=== PATIENT | male | born 1965 | race Caucasian/White ===

== ENCOUNTER 2018-09-17 06:13 | Day surgery (SDC) | payer OTHER ==
[2018-09-13 13:14] VITALS: BMI 27.6
[2018-09-17] MEDS ORDERED: MIDAZOLAM HCL 2 MG/2 ML SINGLE DOSE VIAL ONE (06:43)
[2018-09-17] MEDS ORDERED: BUPIVACAINE HCL/PF (5 MG/ML) 30 ML VIAL IJ ONE (06:43)
[2018-09-17] MEDS ORDERED: DEXAMETHASONE SOD PHOSPHATE/PF 10 MG/ML SDV ONE (06:43)
[2018-09-17] MEDS ORDERED: PROPOFOL 20 ML ONE ×3 (07:06→08:02)
[2018-09-17] MEDS ORDERED: ceFAZolin SODIUM 1 GM VIAL ONE (07:08)
[2018-09-17] MEDS ORDERED: LIDOCAINE HCL 2% JELLY (5 ML/TUBE) ONE (07:08)
[2018-09-17] MEDS ORDERED: KETOROLAC TROMETHAMINE 30 MG/1 ML VIAL ONE (07:08)
[2018-09-17] MEDS ORDERED: DEXAMETHASONE SOD PHOSPHATE 4 MG/1 ML VIAL ONE (07:08)
[2018-09-17] MEDS ORDERED: LIDOCAINE HCL/PF 2% SDV 5ML VIAL ONE (07:08)
[2018-09-17] MEDS ORDERED: SUCCINYLCHOLINE CHLORIDE 200 MG/10 ML VIAL ONE (07:15)
[2018-09-17] MEDS ORDERED: EPINEPHrine 1:1,000 1 MG/1 ML - 30ML VIAL (INJECTION) ONE (07:17)
[2018-09-17] MEDS ORDERED: BUPIVACAINE HCL/PF 2.5 MG/ML - 30 ML VIAL IJ ONE (07:17)
[2018-09-17] MEDS ORDERED: oxyCODONE HCL 5 MG TABLET PO PRN (08:49)
[2018-09-17] MEDS ORDERED: ONDANSETRON 4 MG/2 ML VIAL IVPUSH PRN (08:49)
[2018-09-17] MEDS ORDERED: LACTATED RINGERS SOLUTION 1,000 ML IV SCH (09:00)
[2018-09-17] MEDS ORDERED: ONDANSETRON 4 MG/2 ML VIAL ONE (09:44)
[2018-09-17] MEDS ORDERED: ONDANSETRON 4 MG/2 ML VIAL IVPUSH ONE (09:45)
[2018-09-17 11:35] VITALS: TEMP 97.8
[2018-09-17 11:48] VITALS: BP 131/85; PULSE 76
--- NOTE | 2018-09-17 12:52 | OP ---
DATE OF OPERATION: 09/17/2018 SURGEON: Naomi Apodaca MD ASSISSTANT: PARMINDER Bazan PREOPERATIVE DIAGNOSES: 1. Right shoulder rotator cuff tear. 2. Right shoulder adhesive capsulitis. 3. Right shoulder impingement syndrome. 4. Right shoulder acromioclavicular joint tear. 5. Right shoulder superior labral tear, anterior-posterior synovitis. POSTOPERATIVE DIAGNOSES: 1. Right shoulder rotator cuff tear. 2. Right shoulder adhesive capsulitis. 3. Right shoulder impingement syndrome. 4. Right shoulder acromioclavicular joint tear. 5. Right shoulder superior labral tear, anterior-posterior synovitis. PROCEDURE: 1. Right shoulder arthroscopy with arthroscopic rotator cuff repair (CPT code 93251). 2. Right shoulder arthroscopy with lysis and resection of adhesions (CPT code 29657). 3. Right shoulder arthroscopy with subacromial decompression (CPT code 23255). 4. Right shoulder arthroscopy with resection of distal clavicle, acromioclavicular joint (CPT code 31407). 5. Right shoulder arthroscopy with debridement (CPT code 32026). FINDINGS: 1. Glenohumeral synovitis with adhesions and scar tissue. 2. Superior labral tear to anterior posterior x1. 3. Central grade 2 cartilage injury to glenoid humerus. 4. A 70% tear, supraspinatus, articular side. 5. Type 2-3 acromion with anterior spurring. 6. Thickened scar tissue subacromial space. 7. Inferior spurs at the distal clavicle with acromioclavicular joint disease. 8. Thickened scar tissue at the subacromial space with adhesions and scar tissue. 9. Posterior labral fraying. REPAIR TYPE: Two mattress sutures placed into the supraspinatus and secured to a bleeding bone bed using Opus suture mattress technique and securing with a [place] rotator cuff anchor. DESCRIPTION OF PROCEDURE: Informed consent was obtained. The patient was taken to the operating room, where the upper extremity was prepped and draped in a sterile fashion. The shoulder was manipulated for a full range of motion. A posterior incision portal was made and directed to the glenohumeral joint. Under direct visualization, an anterior incision and portal was made. Extensive synovitis, as well as chondral injuries throughout the glenohumeral joint were debrided and removed. Any identified labral injuries, including the superior labral tear, anterior and posterior, and anterior labrum torn portions, were removed as well. The rotator cuff was visualized and noted to have a full-thickness tear. The edges were debrided. The posterior incision portal was redirected to the subacromial space where a lateral incision portal was made. Excessive and thickened scar tissue noted throughout the subacromial space, including bursal and scar tissue, were removed. The type 2 acromion was converted into a flattened type 1 using a bur for subacromial decompression. The distal inferior spur at the distal clavicle was also debrided with the use of an accessory portal in the acromioclavicular joint. The edges of the rotator cuff were identified. Sutures were placed into the rotator cuff and secured using anchors through the greater tuberosity. Prior to securing, a bleeding bed was made using a small bur, creating a bleeding surface of the rotator cuff insertion. The shoulder was then drained, a single suture was placed in all portals, a sterile dressing was placed and the patient was transferred to the recovery room without complication. The PA listed above was present and assisted at surgery. Their presence was absolutely medically necessary for the completion of the procedure. They helped hold the arthroscopy, pass instruments (and implants when indicated) and the procedure could not have been completed without their assistance. NAOMI APODACA M.D. [id number]
--- NOTE | 2018-09-22 10:16 | PATH ---
Surgical Pathology Report Patient Name: ALVARADO SHIN Med. Rec. #: [id number] /Age/Gender: 1965 (Age: 52) / M Account: [id number] Location: [facility] AMBULATORY Taken: 09/17/2018 Received: 09/17/2018 Reported: 09/22/2018 Physicians: Dez Morris M.D. Specimen(s) Received RIGHT SHOULDER SHAVINGS Clinical History Right shoulder rotator cuff tear Final Diagnosis RIGHT SHOULDER SHAVINGS: FRAGMENTS OF SYNOVIAL TISSUE WITH FIBROSIS. SEPARATE FIBROCARTILAGINOUS TISSUE WITH DEGENERATIVE CHANGE. Electronically Signed Maris Leyva M.D. Gross Description Received in formalin, labeled "right shoulder shavings," is a 4.3 x 4.0 x 0.4 cm. aggregate of auguste-yellow soft tissue fragments. A sales representative facility services portion is submitted in one cassette. /09/20/201809/20/2018
== END 2018-09-17 11:48 | disposition home or self-care (01) ==
LOC: FASU 06:13
PROVIDERS: ATTEND Orthopaedic Surgery
PROC: 0RNJ4ZZ Release Right Shoulder Joint, Percutaneous Endoscopic Approach (ICD-10-PCS; 2018-09-17)
PROC: 0PB94ZZ Excision of Right Clavicle, Percutaneous Endoscopic Approach (ICD-10-PCS; 2018-09-17)
PROC: 0RBJ4ZZ Excision of Right Shoulder Joint, Percutaneous Endoscopic Approach (ICD-10-PCS; 2018-09-17)
PROC: 0LQ14ZZ Repair Right Shoulder Tendon, Percutaneous Endoscopic Approach (ICD-10-PCS; principal; 2018-09-17 07:30)
DX: M75.121 Complete rotator cuff tear or rupture of right shoulder, not specified as traumatic (principal); M75.01 Adhesive capsulitis of right shoulder; M75.41 Impingement syndrome of right shoulder; M24.111 Other articular cartilage disorders, right shoulder; S43.51XA Sprain of right acromioclavicular joint, initial encounter; X58.XXXA Exposure to other specified factors, initial encounter; Y93.9 Activity, unspecified; Y92.9 Unspecified place or not applicable
CPT/HCPCS: 88304-TC; 94760